=== PATIENT | female | born 2000 | race Caucasian/White ===

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

== ENCOUNTER 2022-01-11 16:37 | Emergency (ER) | payer MEDICAID, OTHER ==
[2022-01-11] MEDS ORDERED: SODIUM CHLORIDE 0.9% 1,000 ML IV STA (18:58)
[2022-01-11] MEDS ORDERED: ACETAMINOPHEN TAB 500 MG TAB PO STA (18:58)
[2022-01-11] MEDS ORDERED: ONDANSETRON 4 MG/2 ML VIAL IVP STA (19:05)
--- NOTE | 2022-01-11 19:21 | ED ---
General Adult HPI - General Chief complaint: Fever Stated complaint: Fever,N/V Time Seen by Provider: 01/11/22 18:10 Source: patient, RN notes reviewed Mode of arrival: ambulatory - History of Present Illness Initial comments: 21-year-old female presents to the emergency department for evaluation of fever and fatigue, onset 10 days prior to arrival. Patient states she has been to urgent care and swabbed negative for flu and Covid, but was treated for a mild UTI. States she has been taking the antibiotic for the past five days with no improvement. Reports onset of left flank pain x2 days. Complains of nausea, vomiting, and poor appetite as well. Did not take anything to treat fever prior to arrival. Denies headache, sore throat, cough, congestion, shortness of breath, difficulty breathing, abdominal pain, constipation, diarrhea, dysuria, and hematuria. - Related Data Previous Rx's Medication Instructions Recorded Ondansetron Odt [Zofran Odt] 4 mg PO Q8HR PRN #10 tab 01/11/22 Allergies Allergy/AdvReac Type Severity Reaction Status Date / Time No Known Allergies Allergy Verified 01/11/22 19:18 Review of Systems ROS Statement: Those systems with pertinent positive or pertinent negative responses have been documented in the HPI. ROS Other: All systems not noted in ROS Statement are negative. Past Medical History Past Medical History: No Reported History History of Any Multi-Drug Resistant Organisms: None Reported Past Surgical History: No Surgical Hx Reported Past Psychological History: No Psychological Hx Reported Smoking Status: Never smoker Past Alcohol Use History: None Reported Past Drug Use History: None Reported General Exam Limitations: no limitations (Well-developed, well-nourished female in no acute distress. Initial temperature 102.9, pulse 140, respirations 20, blood pressure 104/64, pulse ox 99% on room air.) General appearance: alert, in no apparent distress Eye exam: Present: normal appearance, PERRL, EOMI. Absent: scleral icterus, conjunctival injection, periorbital swelling ENT exam: Present: normal exam, normal oropharynx, mucous membranes moist, TM's normal bilaterally Neck exam: Present: normal inspection, full ROM, lymphadenopathy (palpable anterior cervical lymph nodes bilaterally). Absent: tenderness, meningismus Respiratory exam: Present: normal lung sounds bilaterally. Absent: respiratory distress, wheezes, rales, rhonchi, stridor, chest wall tenderness Cardiovascular Exam: Present: normal rhythm, tachycardia, normal heart sounds. Absent: systolic murmur, diastolic murmur, rubs, gallop, clicks GI/Abdominal exam: Present: soft, normal bowel sounds. Absent: distended, tenderness, guarding, rebound, rigid Back exam: Present: normal inspection, full ROM, tenderness (mild left lateral back/flank discomfort upon palpation) Neurological exam: Present: alert, oriented X3, normal gait Psychiatric exam: Present: normal affect, normal mood Skin exam: Present: warm, dry, intact, other (cheeks appear flushed) Course Vital Signs 01/11/22 01/11/22 17:35 23:12 Temperature 102.9 F H 98.4 F Pulse Rate 140 H 91 Respiratory 20 16 Rate Blood Pressure 104/64 107/70 O2 Sat by Pulse 99 97 Oximetry - Reevaluation(s) Reevaluation #1: 01/11/22 20:48 Results reviewed with patient and mother. Discussed option of CT abdomen and pelvis, patient and mother are agreeable with this plan of care. Patient is resting comfortably at this time. 01/11/22 22:50 Patient is feeling significantly improved. Encouraged her to continue antibiotic treatment as prescribed for UTI. I explained findings of elevated liver enzymes compatible with mononucleosis. Work note was provided. Instructed to minimize vigorous activity and avoid any contact sports or activi ties with high impact. Patient and mother verbalized understanding and agreed with this plan. Medical Decision Making - Medical Decision Making This is a pleasant 21-year-old female with a 10 day history of fever and fatigue. Upon exam, patient is appearing and in no acute distress. She is febrile and tachycardic with complaints of mild left-sided flank pain. Patient is currently being treated with Keflex for a UTI. Laboratory studies were reviewed showing elevated liver enzymes and a positive heterophile antibody test. Patient's urine appears contaminated, however culture was sent and patient is encouraged to continue on her antibiotic as prescribed. She was given IV fluids, Zofran, and Tylenol with significant improvement. CT of the abdomen and pelvis was obtained and was unremarkable. Results were reviewed with patient and mother. Explained the importance of avoiding vigorous physical activity and contact sports. Advised to avoid sharing eating utensils, food, and drinks. Discussed expectation for length of illness. Encouraged follow-up with PCP for recheck. Return parameters discussed in detail. Patient and m other verbalized understanding and agreed with this plan. Attending: Raj. - Lab Data Result diagrams: 01/11/22 19:39 01/11/22 19:39 Lab Results 01/11/22 01/11/22 01/11/22 Range/Units 19:39 19:39 19:39 WBC 5.9 (4.0-11.0) k/uL RBC 5.97 H (3.80-5.40) m/uL Hgb 16.6 H (11.4-16.0) gm/dL Hct 47.4 H (34.0-46.0) % MCV 79.5 L (80.0-100.0) fL MCH 27.8 (25.0-35.0) pg MCHC 35.0 (31.0-37.0) g/dL RDW 13.9 (11.5-15.5) % Plt Count 155 (150-450) k/uL MPV 8.5 Neutrophils % Not Reportable Neutrophils % (Manual) 37 % Band Neuts % (Manual) 5 % Lymphocytes % Not Reportable Lymphocytes % (Manual) 48 % Monocytes % Not Reportable Monocytes % (Manual) 10 % Eosinophils % Not Reportable Basophils % Not Reportable Neutrophils # Not Reportable Neutrophils # (Manual) 2.40 (1.3-7.7) k/uL Lymphocytes # Not Reportable Lymphocytes # (Manual) 2.83 (1.0-4.8) k/uL Monocytes # Not Reportable Monocytes # (Manual) 0.59 (0-1.0) k/uL Eosinophils # Not Reportable Basophils # Not Reportable Nucleated RBCs 0 (0-0) /100 WBC Manual Slide Review Performed Reactive Lymphocytes Present RBC Morphology Normal Sodium 134 L (137-145) mmol/L Potassium 4.2 (3.5-5.1) mmol/L Chloride 98 (98-107) mmol/L Carbon Dioxide 24 (22-30) mmol/L Anion Gap 12 mmol/L BUN 10 (7-17) mg/dL Creatinine 0.84 (0.52-1.04) mg/dL Est GFR (CKD-EPI)AfAm >90 (>60 ml/min/1.73 sqM) Est GFR (CKD-EPI)NonAf >90 (>60 ml/min/1.73 sqM) Glucose 94 (74-99) mg/dL Calcium 9.1 (8.4-10.2) mg/dL Total Bilirubin 2.8 H (0.2-1.3) mg/dL AST 595 H (14-36) U/L ALT 614 H (4-34) U/L Alkaline Phosphatase 423 H (38-126) U/L Total Protein 9.2 H (6.3-8.2) g/dL Albumin 4.5 (3.5-5.0) g/dL Urine Color Urine Appearance (Clear) Urine pH (5.0-8.0) Ur Specific [place] (1.001-1.035) Urine Protein (Negative) Urine Glucose (UA) (Negative) Urine Ketones (Negative) Urine Blood (Negative) Urine Nitrite (Negative) Urine Bilirubin (Negative) Urine Urobilinogen (<2.0) mg/dL Ur Leukocyte Esterase (Negative) Urine RBC (0-5) /hpf Urine WBC (0-5) /hpf Ur Squamous Epith Cells (0-4) /hpf Urine Bacteria (None) /hpf Urine Mucus (None) /hpf Urine HCG, Qual (Not Detectd) Coronavirus (PCR) (Not Detectd) Heterophile Antibody Positive (Negative) Influenza Type A RNA (Not Detectd) Influenza Type B (PCR) (Not Detectd) 01/11/22 01/11/22 01/11/22 Range/Units 19:39 19:39 19:48 WBC (4.0-11.0) k/uL RBC (3.80-5.40) m/uL Hgb (11.4-16.0) gm/dL Hct (34.0-46.0) % MCV (80.0-100.0) fL MCH (25.0-35.0) pg MCHC (31.0-37.0) g/dL RDW (11.5-15.5) % Plt Count (150-450) k/uL MPV Neutrophils % Neutrophils % (Manual) % Band Neuts % (Manual) % Lymphocytes % Lymphocytes % (Manual) % Monocytes % Monocytes % (Manual) % Eosinophils % Basophils % Neutrophils # Neutrophils # (Manual) (1.3-7.7) k/uL Lymphocytes # Lymphocytes # (Manual) (1.0-4.8) k/uL Monocytes # Monocytes # (Manual) (0-1.0) k/uL Eosinophils # Basophils # Nucleated RBCs (0-0) /100 WBC Manual Slide Review Reactive Lymphocytes RBC Morphology Sodium (137-145) mmol/L Potassium (3.5-5.1) mmol/L Chloride (98-107) mmol/L Carbon Dioxide (22-30) mmol/L Anion Gap mmol/L BUN (7-17) mg/dL Creatinine (0.52-1.04) mg/dL Est GFR (CKD-EPI)AfAm (>60 ml/min/1.73 sqM) Est GFR (CKD-EPI)NonAf (>60 ml/min/1.73 sqM) Glucose (74-99) mg/dL Calcium (8.4-10.2) mg/dL Total Bilirubin (0.2-1.3) mg/dL AST (14-36) U/L ALT (4-34) U/L Alkaline Phosphatase (38-126) U/L Total Protein (6.3-8.2) g/dL Albumin (3.5-5.0) g/dL Urine Color [place] Urine Appearance Cloudy H (Clear) Urine pH 6.0 (5.0-8.0) Ur Specific [place] 1.027 (1.001-1.035) Urine Protein 1+ H (Negative) Urine Glucose (UA) Negative (Negative) Urine Ketones 2+ H (Negative) Urine Blood Negative (Negative) Urine Nitrite Negative (Negative) Urine Bilirubin 2+ H (Negative) Urine Urobilinogen 6.0 (<2.0) mg/dL Ur Leukocyte Esterase Large H (Negative) Urine RBC 7 H (0-5) /hpf Urine WBC 94 H (0-5) /hpf Ur Squamous Epith Cells 44 H (0-4) /hpf Urine Bacteria Rare H (None) /hpf Urine Mucus Many H (None) /hpf Urine HCG, Qual (Not Detectd) Coronavirus (PCR) Not Detected (Not Detectd) Heterophile Antibody (Negative) Influenza Type A RNA Not Detected (Not Detectd) Influenza Type B (PCR) Not Detected (Not Detectd) 01/11/22 Range/Units 19:48 WBC (4.0-11.0) k/uL RBC (3.80-5.40) m/uL Hgb (11.4-16.0) gm/dL Hct (34.0-46.0) % MCV (80.0-100.0) fL MCH (25.0-35.0) pg MCHC (31.0-37.0) g/dL RDW (11.5-15.5) % Plt Count (150-450) k/uL MPV Neutrophils % Neutrophils % (Manual) % Band Neuts % (Manual) % Lymphocytes % Lymphocytes % (Manual) % Monocytes % Monocytes % (Manual) % Eosinophils % Basophils % Neutrophils # Neutrophils # (Manual) (1.3-7.7) k/uL Lymphocytes # Lymphocytes # (Manual) (1.0-4.8) k/uL Monocytes # Monocytes # (Manual) (0-1.0) k/uL Eosinophils # Basophils # Nucleated RBCs (0-0) /100 WBC Manual Slide Review Reactive Lymphocytes RBC Morphology Sodium (137-145) mmol/L Potassium (3.5-5.1) mmol/L Chloride (98-107) mmol/L Carbon Dioxide (22-30) mmol/L Anion Gap mmol/L BUN (7-17) mg/dL Creatinine (0.52-1.04) mg/dL Est GFR (CKD-EPI)AfAm (>60 ml/min/1.73 sqM) Est GFR (CKD-EPI)NonAf (>60 ml/min/1.73 sqM) Glucose (74-99) mg/dL Calcium (8.4-10.2) mg/dL Total Bilirubin (0.2-1.3) mg/dL AST (14-36) U/L ALT (4-34) U/L Alkaline Phosphatase (38-126) U/L Total Protein (6.3-8.2) g/dL Albumin (3.5-5.0) g/dL Urine Color Urine Appearance (Clear) Urine pH (5.0-8.0) Ur Specific [place] (1.001-1.035) Urine Protein (Negative) Urine Glucose (UA) (Negative) Urine Ketones (Negative) Urine Blood (Negative) Urine Nitrite (Negative) Urine Bilirubin (Negative) Urine Urobilinogen (<2.0) mg/dL Ur Leukocyte Esterase (Negative) Urine RBC (0-5) /hpf Urine WBC (0-5) /hpf Ur Squamous Epith Cells (0-4) /hpf Urine Bacteria (None) /hpf Urine Mucus (None) /hpf Urine HCG, Qual Not Detected (Not Detectd) Coronavirus (PCR) (Not Detectd) Heterophile Antibody (Negative) Influenza Type A RNA (Not Detectd) Influenza Type B (PCR) (Not Detectd) - Radiology Data Radiology results: report reviewed, image reviewed CT of the abdomen and pelvis with contrast was obtained. Report was reviewed in its entirety. Impression per Dr. Damon is moderate low-density free fluid in the pelvis. Disposition Clinical Impression: Fever, Mononucleosis, Elevated liver enzymes, UTI (urinary tract infection), Nausea Disposition: HOME SELF-CARE Condition: Stable Instructions (If sedation given, give patient instructions): Mononucleosis (ED), Fever in Adults (ED) Additional Instructions: Treat fever with Motrin. Continue on your Keflex. Take Zofran if needed for nausea. Increase fluids as tolerated. Avoid strenuous or vigorous activity. If you sustain any trauma or injury to your abdomen, you must be seen. You are provided with a work note. Call your PCP to schedule a follow-up appointment. Return to the emergency department with any new, worsening, or concerning symptoms. Prescriptions: Ondansetron Odt [Zofran Odt] 4 mg PO Q8HR PRN #10 tab PRN Reason: Nausea Is patient prescribed a controlled substance at d/c from ED?: No Referrals: Emir Brunner MD [Primary Care Provider] - 1-2 days Time of Disposition: 23:18
[2022-01-11 19:51] LABS: HCT 47.4 % (34.0-46.0); HGB 16.6 gm/dL (11.4-16.0); MCH 27.8 pg (25.0-35.0); MCV 79.5 fL (80.0-100.0); Mean Platelet Volume 8.5; Platelet Count 155 k/uL (150-450); RBC 5.97 m/uL (3.80-5.40); RDW 13.9 % (11.5-15.5); WBC 5.9 k/uL (4.0-11.0)
[2022-01-11 20:18] LABS: ALT 614 U/L (4-34); AST 595 U/L (14-36); African American GFR (CKD) >90 (>60 ml/min/1.73 sqM); Albumin 4.5 g/dL (3.5-5.0); Alkaline Phosphatase 423 U/L (38-126); Anion Gap 12 mmol/L; Blood Urea Nitrogen 10 mg/dL (7-17); Calcium 9.1 mg/dL (8.4-10.2); Carbon Dioxide 24 mmol/L (22-30); Chloride 98 mmol/L (98-107); Glucose 94 mg/dL (74-99); Non-African American GFR(CKD) >90 (>60 ml/min/1.73 sqM); Potassium 4.2 mmol/L (3.5-5.1); Sodium 134 mmol/L (137-145); Total Bilirubin 2.8 mg/dL (0.2-1.3); Total Protein 9.2 g/dL (6.3-8.2)
[2022-01-11 20:19] LABS: Appearance,Urine Cloudy (Clear); Bacteria,Urine Rare /hpf; Bilirubin,Urine 2+ (Negative); Blood,Urine Negative (Negative); Color,Urine Orange; Glucose,Urine (UA) Negative (Negative); Leukocyte Esterase,Urine Large (Negative); Mucus,Urine Many /hpf; Nitrite,Urine Negative (Negative); Protein,Urine 1+ (Negative); RBC,Urine 7 /hpf (0-5); Specific Gravity,Urine 1.027 (1.001-1.035); Squamous Epithelial Cell,Urine 44 /hpf (0-4); WBC,Urine 94 /hpf (0-5)
[2022-01-11 20:20] LABS: Ketones,Urine 2+ (Negative)
[2022-01-11 20:45] LABS: Band Neutrophils % 5 %; Lymphocytes # (M) 2.83 k/uL (1.0-4.8); Monocytes # (M) 0.59 k/uL (0-1.0); Neutrophils % (M) 37 %; Nucleated Red Blood Cells 0 /100 WBC (0-0); Reactive Lymphocytes Present; Total Cells Counted 100
[2022-01-11 20:47] LABS: RBC Morphology Normal
--- NOTE | 2022-01-11 21:49 | CT ---
EXAMINATION TYPE: CT abdomen pelvis w con DATE OF EXAM: 01/11/2022 COMPARISON: None HISTORY: LT sided abdominal pain CT DLP: 728.3 mGycm Automated exposure control for dose reduction was used. CONTRAST: Performed with IV Contrast, patient injected with 100 mL of Isovue 300. Images obtained from the diaphragm to the floor of the pelvis with IV contrast. Lung bases are clear. No pleural effusion. Heart size is normal. No pericardial effusion. Liver splee n and stomach pancreas and gallbladder appear normal. The bile ducts are not dilated. There is no adrenal mass. Kidneys show satisfactory contrast opacification. There is no hydronephrosi s. There is no retroperitoneal adenopathy. The ureters are not dilated. Delayed images show normal re nal excretion. The bladder distends smoothly. Uterus is anteverted. There is moderate low-density javon e fluid in the pelvis. There is no inguinal hernia. No evidence of a solid pelvic mass. The lumbar vertebra have normal spacing and alignment. Posterior elements are intact. No compression fracture. The bony pelvis is intact. The hip joints are intact. Appendix is posterior and appears nor mal. There is no mesenteric edema. No ascites or free air. No evidence of a bowel obstruction. IMPRESSION: Moderate low-density free fluid in the pelvis.
[2022-01-11 23:13] VITALS: BP 107/70; PULSE 91; RESP 16; TEMP 98.4
[2022-01-11] MEDS ORDERED: ONDANSETRON 4 MG ODT STARTER PACK 2 TAB BTL PO STA (23:18)
== END 2022-01-12 00:09 | disposition home or self-care (01) ==
LOC: EC 16:37
DX: N39.0 Urinary tract infection, site not specified (principal)
CPT/HCPCS: 99284 ×2; 96361; 36415; 80053; 85025; 86308; 81001; 81025; 87086; 87502; 87635; 74177; Q9967; 96360; 96374

== ENCOUNTER → 2022-04-05 | Outpatient (CLI) | payer OTHER ==
[2022-04-06 01:38] LABS: Basophils # (A) 0.02 X 10*3/uL (0.00-0.10); Basophils % (A) 0.3 %; Eosinophils # (A) 0.03 X 10*3/uL (0.04-0.35); Eosinophils % (A) 0.4 %; HCT 42.7 % (37.2-46.3); HGB 13.9 g/dL (12.0-15.0); Immature Grans, Automated 0.1 %; Lymphocytes # (A) 2.55 X 10*3/uL (0.90-5.00); Lymphocytes % (A) 37.2 %; MCH 25.6 pg (27.0-32.0); MCHC 32.6 g/dL (32.0-37.0); MCV 78.5 fL (80.0-97.0); Mean Platelet Volume 9.8 fL (9.5-12.2); Monocytes % (A) 8.8 %; NRBC Per 100 WBC 0 /100 WBCS (0.0-0.0); Neutrophils # (A) 3.64 X 10*3/uL (1.80-7.70); Neutrophils % (A) 53.2 %; Platelet Count 322 X 10*3/uL (140-440); RBC 5.44 X 10*6/uL (4.10-5.20); RDW 13.5 % (11.5-14.5); WBC 6.85 X 10*3/uL (4.50-10.00)
== END | disposition home or self-care (01) ==
LOC: LABPAT 14:51
PROVIDERS: ATTEND Obstetrics & Gynecology
DX: Z01.812 Encounter for preprocedural laboratory examination (principal)
CPT/HCPCS: 85025

== ENCOUNTER 2022-04-07 05:57 | Day surgery (SDC) | payer OTHER ==
--- NOTE | 2022-04-06 07:14 | P.HPOB ---
History of Present Illness H&P Date: 04/06/22 Chief Complaint: Missed This patient is a pleasant 21-year-old 1 para 0 female estimated gestational age by last menstrual period 9 weeks 6 days, estimated gestational age 8 weeks and 5 days I ultrasound who presented to my office for routine care. She had and also some done is fair over that apparently showed a heartbeat but was smaller than expected. I was unable to get heart tones in the office and ultrasound showed an 8 week demise. Patient was counseled as to expected management versus suction D&C for treatment. Patient is requested D&C for treatment. Review of Systems Genitourinary: Reports Menstruation: Reports amenorrhea Past Medical History Past Medical History: No Reported History History of Any Multi-Drug Resistant Organisms: None Reported Past Surgical History: No Surgical Hx Reported Past Anesthesia/Blood Transfusion Reactions: No Reported Reaction Past Psychological History: No Psychological Hx Reported Smoking Status: Never smoker Past Alcohol Use History: None Reported Past Drug Use History: None Reported Medications and Allergies Home Medications Medication Instructions Recorded Confirmed Type Ondansetron Odt [Zofran Odt] 4 mg PO Q8HR PRN #10 tab 01/11/22 Rx Allergies Allergy/AdvReac Type Severity Reaction Status Date / Time No Known Allergies Allergy Verified 01/11/22 19:18 Exam - OBG Physical Exam Abdomen: bowel sounds normal, no diffuse tenderness, no bruit present, no guarding noted, no hepatomegaly, no splenomegaly, no mass Vulva: both: normal Vagina: normal moisture, no discharge Cervix: no lesion, no discharge Uterus: enlarged (He weeks size) Results Blood type is Rh+. Ultrasound shows an 8 Week intrauterine without cardiac activity Assessment and Plan Assessment: This is a pleasant 21-year-old 1 para 0 female 8 and half weeks gestat ion with missed . Patient is requesting suction D&C for treatment. I discussed the surgery in detail with the patient and her mother. She understands risks of infection, bleeding, possible uterine perforation. All the patient's questions are answered and a written consent is obtained. (1) Missed Status: Acute Code(s): O02.1 - MISSED SNOMED Code(s): 44858791
[~2022-04-07 05:57] MED LIST: Pre Op ABX Message 1 EACH MISC MISCELLANE ONE
[2022-04-07] MEDS ORDERED: DEXAMETHASONE SOD PHOSPHATE 4 MG/ML 1 ML VIAL IV ONE (06:06)
[2022-04-07] MEDS ORDERED: LIDOCAINE 1% (10MG/ML) FOR IV START INTRADERMA PRN (06:06)
[2022-04-07] MEDS ORDERED: LACTATED RINGERS 1,000 ML IV SCH (06:06)
[2022-04-07] MEDS ORDERED: ONDANSETRON 4 MG/2 ML VIAL IVP ONE (06:06)
[2022-04-07] MEDS ORDERED: HYDROmorphone 0.5 MG/0.5 ML SYRINGE IVP PRN (06:06)
[2022-04-07] MEDS ORDERED: SCOPOLAMINE 1 MG/72 HR PATCH TRANSDERM ONE (06:06)
[2022-04-07] MEDS ORDERED: MIDAZOLAM 2 MG/2 ML VIAL IVP ONE (06:44)
[2022-04-07] MEDS ORDERED: LIDOCAINE 2% INJ 20 MG/ML (2 ML VIAL) ONE (06:55)
[2022-04-07] MEDS ORDERED: PROPOFOL 10 MG/ML 20 ML VIAL IV ONE (06:55)
[2022-04-07] MEDS ORDERED: MIDAZOLAM 2 MG/2 ML VIAL ONE (06:55)
[2022-04-07] MEDS ORDERED: KETOROLAC 15 MG/ML 1 ML VIAL ONE (06:55)
[2022-04-07] MEDS ORDERED: fentaNYL (PF) 50 MCG/ML 2 ML AMP ONE (06:55)
[2022-04-07] MEDS ORDERED: LACTATED RINGERS 1,000 ML IV ONE (07:24)
--- NOTE | 2022-04-07 07:33 | P.OP ---
Date of Procedure: 04/07/22 Preoperative Diagnosis: 8 and half week missed Postoperative Diagnosis: Same Procedure(s) Performed: Suction D&C Anesthesia: other (LMA) Surgeon: Dwight Peace Estimated Blood Loss (ml): 150 Urine output (ml): 20 Pathology: other (Uterine contents) Condition: stable Disposition: PACU Indications for Procedure: Please see dictated H&P for intimate details of this patient's admission. Brief summary this is a pleasant 21-year-old 1 para 0 female estimated gestational age by ultrasound 8-1/2 weeks with missed . Patient requested suction D&C for treatment. She and I have discussed this procedure and risks and risks of infection, bleeding, possible uterine perforation. All the patient's questions are answered and a written consent is obtained. Operative Findings: Patient had a generous amount of products of conception. Description of Procedure: This patient is taken to the operating room and laid in the supine position. She is subsequently taken to the operating room where she undergoes general anesthesia without incident. With an adequate level of anesthesia she's placed in the dorsal lithotomy position. She has a vaginal perineal prep and drape. Examination under anesthesia shows a mid position uterus slightly enlarged. I first drain the bladder for 20 mL of clear urine. Weighted speculum was placed in the posterior vagina. The anterior lip of the cervix is grabbed with an Allis clamp. I gently dilate the cervix to allow a 8 curved suction curette easily and the uterine cavity. Multiple passes are made and a large amount of tissue is removed. No further tissue noted, a gentle but thorough 4 quadrant curettage is done and again no further tissue was noted. The bleeding subsides at this point. Make one more pass with the suction curet and no other tissue is noted. This point the procedure is ended. The Allis clamp and weighted speculum were removed. The patient is awakened from anesthesia and taken to recovery room in satisfactory condition. All counts are correct 3. There are no complications.
[2022-04-07 07:54] VITALS: TEMP 96.9
[2022-04-07 08:30] VITALS: RESP 18
[2022-04-07 08:51] VITALS: BP 105/83; PULSE 78
== END 2022-04-07 09:05 | disposition home or self-care (01) ==
LOC: OR 05:57
PROVIDERS: ATTEND Obstetrics & Gynecology
DX: O02.1 Missed abortion (principal)
CPT/HCPCS: 86900; 86901; 88305; 86850; 59820; J2250; J1100; J2405; J3010; J1885; J2704; J2001

== ENCOUNTER → 2022-09-20 | Outpatient (CLI) | payer OTHER ==
--- NOTE | 2022-09-20 15:24 | US ---
EXAMINATION TYPE: Transabdominal DATE OF EXAM: 09/20/2022 2:35 PM COMPARISON: NONE CLINICAL HISTORY: Z36.89 ENCOUNTER FOR OTHER SPECIFIED SCR. confirm dates EXAM PERFORMED: Transabdominal (TA) EXAM MEASUREMENTS: GESTATIONAL AGE / DATING Physician Established: Not yet established Dates by LMP: (7 weeks/1 days) EDC: 05/08/23 Dates by First Scan: No previous this is first scan Dates by Current Scan for: (7 weeks/6 days) EDC: 05/03/23 MATERNAL ANATOMY Uterus: 8.8 x 4.8 x 5.7cm Right Ovary: 3.0 x 2.0 x 2.1cm Left Ovary: 3.0 x 1.7 x 2.8cm Post CDS / Adnexa: wnl Presence of free fluid: no Presence of corpus luteal cyst: yes, complex area right ovary = 2.0 x 1.3 x 1.1cm and cystic area lef t ovary = 1.4 x 1.0 x 1.4cm Presence of subchorionic bleed: no GESTATION / SURVEY CRL: 1.5cm (7 weeks/6 days) Yolk Sac (normal less than 6mm): 0.3cm Heart Rate: 163 bpm Rhythm: Normal IUP: Viable IUP Date of LMP: 08/01/22 Beta HcG (if available): Not available at this time IMPRESSION: 1. Single intrauterine gestation estimated at 7 weeks 6 day gestation based on crown-rump length. Car diac activity was 163 bpm. 2. Complex right ovarian cyst.
== END | disposition home or self-care (01) ==
LOC: RADUSWWP 14:17
PROVIDERS: ATTEND Obstetrics & Gynecology
DX: O34.81 Maternal care for other abnormalities of pelvic organs, first trimester (principal); Z3A.01 Less than 8 weeks gestation of pregnancy
CPT/HCPCS: 76801

== ENCOUNTER 2023-04-23 12:00 | Outpatient (CLI) | payer OTHER ==
[2023-04-23 12:50] VITALS: BP 125/77; PULSE 99; RESP 16; TEMP 98.2
--- NOTE | 2023-04-23 13:09 | P.MSEPDOC ---
Presenting Problems - Arrival Data Date of Arrival on Unit: 04/23/23 Time of Arrival on Unit: 12:44 Mode of Transport: Ambulatory - Complaint OB-Reason for Admission/Chief Complaint: Rule Out SROM Medical History - Information : 2 Para: 0 Term: 0 : 0 Abortions: Spontaneous or Elective: 1 Number of Living Children: 0 - Gestational Age Gestational Age by NEIL (wks/days): 38 Weeks and 5 Days Review of Systems - Review of Systems Constitutional: No problems Breast: No problems ENT: No problems Cardiovascular: No problems Respiratory: No problems Gastrointestinal: No problems Genitourinary: No problems Musculoskeletal: No problems Neurological: No problems Skin: No problems Vital Signs - Temperature Temperature: 98.2 F Temperature Source: Temporal Artery Scan - Pulse Right Sitting Pulse Rate: 99 Pulse Assessment Method: Automatic Cuff - Respirations Respiratory Rate: 16 Oxygen Delivery Method: Room Air O2 Sat by Pulse Oximetry: 99 - Blood Pressure Right Arm Blood Pressure: 125/77 Blood Pressure Mean: 93 Blood Pressure Source: Automatic Cuff Medical Screen Scoring - Cervical Exam Dilation (cm): 2 Effacement (%): 50 Station: -2 Membranes: Intact - Uterine Contractions Frequency From (mins): 2 Frequency To (mins): 2 Duration From (seconds): 40 Duration To (seconds): 60 Intensity: Mild Resting: Soft to palpation - Assessment - Baby A Baseline FHR: 130 Heart Rate - NICHD Category: Category I (Normal) NST: Reactive Physician Notification - Physician Notified Physician Notified Date: 04/23/23 Physician Notified Time: 12:36 Physician: Dwight Peace New Order Received: Yes Maternal Triage Index - Prompt/Priority 3 Prompt Priority 3: Yes Criteria Met for Priority 3: negative amnisure, reactive nst, vag exam 2cm/50% Disposition - Disposition OB Disposition: Discharge to home, Written follow up instructions reviewed Discharge Date: 04/23/23 Discharge Time: 12:44 I agree with the RN Medical Screening Exam: Yes Case reviewed; plan agreed upon as documented in EMR&OBIX.: Yes Diagnosis: FALSE LABOR AT OR AFTER 37 COMPLETED WEEKS OF GESTATION
== END 2023-04-23 12:44 | disposition home or self-care (01) ==
LOC: FBPOP 12:00
PROVIDERS: ATTEND Obstetrics & Gynecology
DX: O47.1 False labor at or after 37 completed weeks of gestation (principal); Z3A.38 38 weeks gestation of pregnancy
CPT/HCPCS: 59025; 84112; G0463; 99213

== ENCOUNTER 2023-04-26 05:46 | Inpatient (IN) | payer OTHER ==
--- NOTE | 2023-04-25 07:15 | P.HPOB ---
History of Present Illness H&P Date: 04/25/23 Chief Complaint: Requested induction of labor This patient is a pleasant 22-year-old 2 para 0 female estimated date of confinement 05/02/2023 estimated gestational age 39 and one sevenths weeks who presents to labor and delivery for requested induction of labor due to being uncomfortable. Patient's care has been uncomplicated. Review of Systems Genitourinary: Reports Menstruation: Reports amenorrhea Past Medical History Past Medical History: No Reported History History of Any Multi-Drug Resistant Organisms: None Reported Additional Past Surgical History / Comment(s): Suction D&C Past Anesthesia/Blood Transfusion Reactions: No Reported Reaction Past Psychological History: No Psychological Hx Reported Smoking Status: Never smoker Past Alcohol Use History: None Reported Past Drug Use History: None Reported Medications and Allergies Home Medications Medication Instructions Recorded Confirmed Type Vit No.179/Iron/Folic 1 tab PO DAILY 04/06/22 04/23/23 History [ Tablet] Allergies Allergy/AdvReac Type Severity Reaction Status Date / Time No Known Allergies Allergy Verified 04/23/23 12:23 Exam - OBG Physical Exam Abdomen: bowel sounds normal, no diffuse tenderness, no bruit present, no guarding noted, no hepatomegaly, no splenomegaly, no mass Vulva: both: normal Vagina: normal moisture, no discharge Cervix: no lesion (Cervix in the office was 2 cm dilated 50% effaced), no discharge Uterus: enlarged (Fundal height 39 cm) Results labs show she is oh positive, rubella immune, RPR is nonreactive, hepatitis B and C were nonreactive, HIV is negative, cell free DNA was 46 XY, group B strep was negative, ultrasounds most recently show the baby vertex 6 pounds ounces. Assessment and Plan Assessment: This is a pleasant 22-year-old 2 para 0 female 39 weeks gestation who presents to labor and delivery for requested induction of labor. Plan is induction of labor and anticipate vaginal delivery. (1) 39 weeks gestation of Status: Acute Code(s): Z3A.39 - 39 WEEKS GESTATION OF SNOMED Code(s): 85525667 (2) Elective induction of labor planned Status: Acute Code(s): UZW8248 - SNOMED Code(s): 265011757
[2023-04-26] MEDS ORDERED: TERBUTALINE 1 MG/ML VIAL SQ PRN (06:07)
[2023-04-26] MEDS ORDERED: LIDOCAINE 0.5% (PF) 5 MG/ML (50 ML SDV) SQ PRN (06:07)
[2023-04-26] MEDS ORDERED: OXYTOCIN 30 UNITS/500 ML NS 30 UNIT in SALINE 1 500ML.BAG IV SCH ×2 (06:07→21:48)
[2023-04-26] MEDS ORDERED: OXYTOCIN 10 UNIT/ML 1 ML VIAL IM PRN (06:07)
[2023-04-26] MEDS ORDERED: miSOPROStoL 200 MCG TAB PO PRN (06:07)
[2023-04-26] MEDS ORDERED: CARBOPROST TROMETHAMINE 250 MCG/ML 1 ML AMP IM PRN (06:07)
[2023-04-26] MEDS ORDERED: METHYLERGONOVINE 0.2 MG/ML 1 ML AMP IM PRN (06:07)
[2023-04-26] MEDS ORDERED: TRANEXAMIC 1,000 MG/100ML-NACL 1,000 MG in EMPTY BAG 1 BAG IV PRN (06:07)
[2023-04-26] MEDS: LACTATED RINGERS 1,000 ML IV SCH ×3 (06:38→14:17)
[2023-04-26 06:52] LABS: Basophils # (A) 0.1 k/uL (0-0.2); Basophils % (A) 0 %; Eosinophils # (A) 0.1 k/uL (0-0.7); Eosinophils % (A) 1 %; HCT 37.3 % (34.0-46.0); HGB 12.6 gm/dL (11.4-16.0); Lymphocytes # (A) 3.2 k/uL (1.0-4.8); Lymphocytes % (A) 24 %; MCH 26.6 pg (25.0-35.0); MCHC 33.7 g/dL (31.0-37.0); Monocytes # (A) 0.7 k/uL (0-1.0); Monocytes % (A) 5 %; Neutrophils # (A) 9.5 k/uL (1.3-7.7); Neutrophils % (A) 69 %; Platelet Count 241 k/uL (150-450); RBC 4.72 m/uL (3.80-5.40); RDW 15.1 % (11.5-15.5); WBC 13.8 k/uL (4.0-11.0)
[2023-04-26] MEDS ORDERED: SODIUM CHLORIDE 0.9% 100 ML BAG ONE (13:29)
[2023-04-26] MEDS ORDERED: fentaNYL (PF) 50 MCG/ML 5 ML AMP ONE (13:29)
[2023-04-26] MEDS ORDERED: ROPIVACAINE 5 MG/ML 20 ML AMPULE ONE (13:29)
[2023-04-26] MEDS ORDERED: diphenhydrAMINE 25 MG CAP PO PRN (21:48)
[2023-04-26] MEDS ORDERED: LANOLIN CREAM 5 GM TUBE TOPICAL PRN (21:48)
[2023-04-26] MEDS ORDERED: SIMETHICONE 80 MG CHEWABLE PO PRN (21:48)
[2023-04-26] MEDS ORDERED: bisacodyL 10 MG SUPP RECTAL PRN (21:48)
[2023-04-26] MEDS ORDERED: diphenhydrAMINE 50 MG/ML 1 ML VIAL IVP PRN (21:48)
[2023-04-26] MEDS ORDERED: ZOLPIDEM 5 MG TAB PO PRN (21:48)
[2023-04-26] MEDS ORDERED: HYDROCORTISONE 2.5% RECTAL CREAM 30 GM TUBE RECTAL PRN (21:48)
[2023-04-26] MEDS ORDERED: BENZOCAINE/MENTHOL SPRAY 1 GM/SPRAY AEROSOL TOPICAL PRN (21:48)
--- NOTE | 2023-04-26 21:49 | P.PROBDLV ---
Vaginal Delivery Note - . Vaginal Delivery Note: Normal vaginal delivery viable male Apgars 9 and 9 delivery time is 2113 hrs. Please see dictated H&P for intimate details of this patient's admission. In brief summary this is a pleasant 22-year-old 2 para 0 female 39 and one sevenths weeks gestation admitted to labor and delivery for requested induction of labor. Admission patient is to [facility] dilated artificial rupture membranes for clear fluid. Labor is induced with Pitocin per protocol. She does get an epidural for pain control and progresses throughout the day. Patient does get to complete however has no urge to push and for this reason the epidural showed off in approximately an hour or so later she begins to have the urge to push. Patient pushes for approximately 1 hour pushes the head to the perineum. Posterior perineum is supported we have controlled delivery of the 's head over the intact perineum. Infant's head is straight occiput anterior presentation. Mouth and nares are bulb suctioned. Is no evidence of a nuchal cord. I can feel a hand presenting with the anterior shoulder and this is gently reduced and with maternal effort she easily delivered the anterior and posterior shoulder and rest this 's body. This is a vigorous viable male infant Apgars 9 and 9 delivery time is 2113 hrs. After delivery of the the umbilical cord is doubly clamped and cut it does appear to be trivascular. The placenta is then spontaneously delivered intact. Inspection of the perineum shows that there is bilateral vaginal sulcus tears and bilateral labial tears. There is no significant perineal laceration. Using a 3-0 Vicryl I do a running lock of the vaginal sulcus tears and hemostasis is assured. I then do a running suture of 3-0 Vicryl bilateral labial lacerations and again good hemostasis is noted and excellent reapproximation. Final inspection shows no significant posterior perineal tears. Good hemostasis is noted. Estimated blood loss is probably 400 mL. All counts are correct 3. There are no complications. and mother are stable delivery room.
[2023-04-26] MEDS: SENNOSIDES-DOCUSATE SODIUM 1 EACH TAB PO SCH (22:42)
[2023-04-26] MEDS: IBUPROFEN 600 MG TAB PO PRN (23:31)
[2023-04-27] MEDS: IBUPROFEN 600 MG TAB PO PRN ×3 (05:24→22:54)
--- NOTE | 2023-04-27 06:11 | P.PNOBGVD ---
Subjective - Subjective Patient reports: Reports appetite normal, Reports voiding normally, Reports pain well controlled, Reports ambulating normally : doing well Objective - Latest Vital Signs Latest vital signs: Vital Signs Temp Pulse Resp BP 04/27/23 04:00 97.8 F 82 16 96/51 04/26/23 23:35 97 16 102/57 04/26/23 23:05 101 H 16 104/59 04/26/23 22:35 98.1 F 58 L 16 124/63 04/26/23 22:20 123 H 16 112/57 04/26/23 22:05 118 H 16 110/57 04/26/23 21:50 98.9 F 123 H 18 104/56 04/26/23 21:35 99.2 F 117 H 16 108/59 Intake and Output 04/26/23 04/26/23 04/27/23 14:59 22:59 06:59 Intake Total 196.3 Output Total 400 90 Balance -203.7 -90 Intake: Intake, IV Titration 196.3 Amount Oxytocin 30 Units/500 ml 196.3 Ns 30 unit In Saline 1 500ml.bag @ Per Protocol IV .Q0M [facility] Rx#:[id number] Output: Estimated Blood Loss 400 Output, Quantitative 90 Blood Loss Other: # Voids 2 1 - Exam Lungs: bilateral: normal Chest: Normal S1, Normal S2 Extremities: Present: normal Abdomen: Present: normal appearance, soft Uterus: Present: normal, firm - Labs Labs: Abnormal Lab Results - Last 24 Hours (Table) 04/26/23 Range/Units 06:30 WBC 13.8 H (4.0-11.0) k/uL MCV 79.0 L (80.0-100.0) fL Neutrophils # 9.5 H (1.3-7.7) k/uL Assessment and Plan Assessment: day #1. Patient's resting. Vital signs are stable she's afebrile. Uterus is firm nontender and she is having normal lochia. My impression is this is a normal course. Plan is to continue routine care and discharge home tomorrow. (1) 39 weeks gestation of Current Visit: No Status: Acute Code(s): Z3A.39 - 39 WEEKS GESTATION OF SNOMED Code(s): 10756343 (2) Elective induction of labor planned Current Visit: No Status: Acute Code(s): IBI5161 - SNOMED Code(s): 619199523
[2023-04-27] MEDS: ACETAMINOPHEN TAB 325 MG TAB PO PRN ×2 (07:28→16:34)
[2023-04-27 08:04] LABS: Basophils # (A) 0.1 k/uL (0-0.2); Basophils % (A) 0 %; Eosinophils # (A) 0.1 k/uL (0-0.7); Eosinophils % (A) 1 %; HCT 34.2 % (34.0-46.0); HGB 11.3 gm/dL (11.4-16.0); Lymphocytes % (A) 16 %; MCH 26.5 pg (25.0-35.0); MCV 80.3 fL (80.0-100.0); Mean Platelet Volume 8.4; Monocytes # (A) 0.9 k/uL (0-1.0); Monocytes % (A) 5 %; Neutrophils # (A) 14.1 k/uL (1.3-7.7); Neutrophils % (A) 76 %; Platelet Count 263 k/uL (150-450); RBC 4.26 m/uL (3.80-5.40); RDW 15.6 % (11.5-15.5); WBC 18.5 k/uL (4.0-11.0)
[2023-04-27] MEDS: SENNOSIDES-DOCUSATE SODIUM 1 EACH TAB PO SCH ×2 (08:19→22:54)
[2023-04-28] MEDS: ACETAMINOPHEN TAB 325 MG TAB PO PRN (04:16)
[2023-04-28] MEDS: IBUPROFEN 600 MG TAB PO PRN ×2 (05:39→12:53)
[2023-04-28 08:38] VITALS: BP 117/77; PULSE 90; RESP 14; TEMP 98
[2023-04-28] MEDS: SENNOSIDES-DOCUSATE SODIUM 1 EACH TAB PO SCH (09:05)
--- NOTE | 2023-04-28 09:09 | P.DS ---
Providers Date of admission: 04/26/23 05:46 Expected date of discharge: 04/28/23 Attending physician: Dwight Peace Primary care physician: Emir Brunner - Discharge Diagnosis(es) (1) Normal vaginal delivery Current Visit: Yes Status: Acute Hospital Course: Patient presented for induction of labor. She underwent a normal vaginal delivery. course was uneventful. She'll be discharged home day #2 in stable condition to follow-up with Dr. Peace in 6 weeks. Plan - Discharge Summary New Discharge Prescriptions: New Ibuprofen [Motrin] 600 mg PO Q6HR PRN #40 tab PRN Reason: Mild Pain (Scale 1 To 3) No Action Vit No.179/Iron/Folic [ Tablet] 1 tab PO DAILY Discharge Medication List Vit No.179/Iron/Folic [ Tablet] 1 tab PO DAILY 04/06/22 [History] Ibuprofen [Motrin] 600 mg PO Q6HR PRN #40 tab 04/27/23 [Rx] Follow up Appointment(s)/Referral(s): Dwight Peace MD [STAFF PHYSICIAN] - 6 Weeks Patient Instructions/Handouts: Vaginal Delivery (DC) Activity/Diet/Wound Care/Special Instructions: No intercourse or anything per vagina for 6 weeks. Please call if any fever, chills, excessive vaginal bleeding, and/or abdominal pain Discharge Disposition: HOME SELF-CARE
== END 2023-04-28 14:22 | disposition home or self-care (01) | DRG 560 ==
LOC: 4FBP 05:46
PROVIDERS: ADMIT Obstetrics & Gynecology; ATTEND Obstetrics & Gynecology
PROC: 10E0XZZ Delivery of Products of Conception, External Approach (ICD-10-PCS; principal; 2023-04-26)
PROC: 3E033VJ Introduction of Other Hormone into Peripheral Vein, Percutaneous Approach (ICD-10-PCS; 2023-04-26)
PROC: 0HQ9XZZ Repair Perineum Skin, External Approach (ICD-10-PCS; 2023-04-26)
PROC: 10907ZC Drainage of Amniotic Fluid, Therapeutic from Products of Conception, Via Natural or Artificial Opening (ICD-10-PCS; 2023-04-26)
DX: O70.0 First degree perineal laceration during delivery (principal); Z37.0 Single live birth; Z3A.39 39 weeks gestation of pregnancy
CPT/HCPCS: 85025; 86850; 86900; 86901

== ENCOUNTER 2023-08-31 09:17 | Emergency (ER) | payer OTHER ==
[2023-08-31 09:43] VITALS: BP 115/77; PULSE 80; RESP 18; TEMP 98
--- NOTE | 2023-08-31 10:18 | XR ---
EXAMINATION TYPE: XR ankle complete RT DATE OF EXAM: 08/31/2023 10:12 AM CLINICAL INDICATION:Female, 23 years old with history of pain; [facility] COMPARISON: None TECHNIQUE: XR ankle complete RT; ankle is imaged in frontal, lateral and oblique projections. FINDINGS: There is no evidence of acute osseous pathology. The joint spaces are well-preserved without evidenc e of subluxation or dislocation. Kager's fat pad is intact. Mild soft tissue swelling around the ankl e. No radiopaque foreign bodies are identified. IMPRESSION: 1. No evidence of acute fracture. 2. Subcutaneous swelling around the ankle likely secondary to underlying soft tissue injury.
--- NOTE | 2023-08-31 10:30 | ED ---
Lower Extremity Injury HPI - General Chief Complaint: Extremity Injury, Lower Stated Complaint: Right foot injury Time Seen by Provider: 08/31/23 09:24 Source: patient, RN notes reviewed Mode of arrival: ambulatory Limitations: no limitations - History of Present Illness Initial Comments: 23-year-old female sent emergency Department chief complaint of ankle injury. Patient states that she slipped on some steps on her ankle. She states is painful on the lateral portion no head injury no loss conscious or associated symptoms. - Related Data Home Medications Medication Instructions Recorded Confirmed Vit No.179/Iron/Folic 1 tab PO DAILY 04/06/22 04/26/23 [ Tablet] Previous Rx's Medication Instructions Recorded Ibuprofen [Motrin] 600 mg PO Q6HR PRN #40 tab 04/27/23 Ibuprofen [Motrin] 600 mg PO Q8HR PRN #20 tab 08/31/23 Allergies Allergy/AdvReac Type Severity Reaction Status Date / Time No Known Allergies Allergy Verified 08/31/23 09:30 Review of Systems ROS Statement: Those systems with pertinent positive or pertinent negative responses have been documented in the HPI. ROS Other: All systems not noted in ROS Statement are negative. Past Medical History Past Medical History: No Reported History History of Any Multi-Drug Resistant Organisms: None Reported Past Surgical History: No Surgical Hx Reported Additional Past Surgical History / Comment(s): Suction D&C Past Anesthesia/Blood Transfusion Reactions: No Reported Reaction Past Psychological History: No Psychological Hx Reported Smoking Status: Never smoker Past Alcohol Use History: None Reported Past Drug Use History: None Reported General Exam Limitations: no limitations General appearance: alert, in no apparent distress Head exam: Present: atraumatic, normocephalic, normal inspection Respiratory exam: Present: normal lung sounds bilaterally. Absent: respiratory distress, wheezes, rales, rhonchi, stridor Cardiovascular Exam: Present: regular rate, normal rhythm, normal heart sounds. Absent: systolic murmur, diastolic murmur, rubs, gallop, clicks Extremities exam: Present: other (Right ankle there is lateral malleoli tenderness and swelling.) Course Vital Signs 08/31/23 09:27 Temperature 98 F Pulse Rate 80 Respiratory 18 Rate Blood Pressure 115/77 O2 Sat by Pulse 100 Oximetry Medical Decision Making - Medical Decision Making Was pt. sent in by a medical professional or institution (, PA, JAVA SQL DEVELOPER, urgent care, hospital, or [place] health care facility...) When possible be specific @ -No Did you speak to anyone other than the patient for history (EMS, parent, family, police, friend...)? What history was obtained from this source @ -No Did you review nursing and triage notes (agree or disagree)? Why? @ -I reviewed and agree with nursing and triage notes Were old charts reviewed (outside hosp., previous admission, EMS record, old EKG, old radiological studies, urgent care reports/EKG's, [place] health care facility records)? Report findings @ -No old charts were reviewed Differential Diagnosis (chest pain, altered mental status, abdominal pain women, abdominal pain men, vaginal bleeding, weakness, fever, dyspnea, syncope, headache, dizziness, GI bleed, back pain, seizure, CVA, palpatations, mental health, musculoskeletal)? @ -Ankle sprain, ankle fracture EKG interpreted by me (3pts min.). @ -None X-rays interpreted by me (1pt min.). @ -X-ray right ankle no acute fracture or dislocation soft tissue swelling CT interpreted by me (1pt min.). @ -None done U/S interpreted by me (1pt. min.). @ -None done What testing was considered but not performed or refused? (CT, X-rays, U/S, labs)? Why? @ -None What meds were considered but not given or refused? Why? @ -None Did you discuss the management of the patient with other professionals (professionals i.e. , PA, JAVA SQL DEVELOPER, lab, RT, psych nurse, clinical social work aide, background check coordinator, teacher, chief innovation officer, case resolution specialist)? Give summary @ -No Was smoking cessation discussed for >3mins.? @ -No Was critical care preformed (if so, how long)? @ -No Were there social determinants of health that impacted care today? How? (Homelessness, low income, unemployed, alcoholism, drug addiction, transportation, low edu. Level, literacy, decrease access to med. care, long term, rehab)? @ -No Was there de-escalation of care discussed even if they declined (Discuss DNR or withdrawal of care, Hospice)? DNR status @ -No What co-morbidities impacted this encounter? (DM, HTN, Smoking, COPD, CAD, Cancer, CVA, ARF, Chemo, Hep., AIDS, mental health diagnosis, sleep apnea, morbid obesity)? @ -None Was patient admitted / discharged? Hospital course, mention meds given and route, prescriptions, significant lab abnormalities, going to OR and other pertinent info. @ -Discharge patient has a right ankle sprain patient is placed in a stirrup Aircast will be discharged in stable condition. Undiagnosed new problem with uncertain prognosis? @ -No Drug Therapy requiring intensive monitoring for toxicity (Heparin, Nitro, Insulin, Cardizem)? @ -No Were any procedures done? @ -No Diagnosis/symptom? @ -Right ankle sprain Acute, or Chronic, or Acute on Chronic? @ -Acute Uncomplicated (without systemic symptoms) or Complicated (systemic symptoms)? @ -Uncomplicated Side effects of treatment? @ -No Exacerbation, Progression, or Severe Exacerbation? @ -No Poses a threat to life or bodily function? How? (Chest pain, [place], [place], pneumonia, PE, COPD, DKA, ARF, appy, cholecystitis, CVA, Diverticulitis, Homicidal, Suicidal, threat to staff... and all critical care pts) @ -No Disposition Clinical Impression: Right ankle sprain Disposition: HOME SELF-CARE Condition: Stable Instructions (If sedation given, give patient instructions): Ankle Sprain (ED) Additional Instructions: Please return to the Emergency Department if symptoms worsen or any other concerns. Prescriptions: Ibuprofen [Motrin] 600 mg PO Q8HR PRN #20 tab PRN Reason: Pain Is patient prescribed a controlled substance at d/c from ED?: No Referrals: Emir Brunner MD [Primary Care Provider] - 1-2 days Roni Woodard MD [Medical Doctor] - 1-2 days Time of Disposition: 10:30
== END 2023-08-31 11:06 | disposition home or self-care (01) ==
LOC: EC 09:17
DX: S93.401A Sprain of unspecified ligament of right ankle, initial encounter (principal); W10.9XXA Fall (on) (from) unspecified stairs and steps, initial encounter
CPT/HCPCS: 99283

== ENCOUNTER 2024-11-17 15:45 | Observation (INO) | payer OTHER ==
[2024-11-17 16:32] LABS: Appearance,Urine Clear (Clear); Bilirubin,Urine Negative (Negative); Blood,Urine Negative (Negative); Color,Urine Colorless; Glucose,Urine (UA) Negative (Negative); Ketones,Urine Negative (Negative); Leukocyte Esterase,Urine Moderate (Negative); Nitrite,Urine Negative (Negative); Protein,Urine Negative (Negative); RBC,Urine 1 /hpf (0-5); Specific Gravity,Urine 1.004 (1.001-1.035); Squamous Epithelial Cell,Urine 8 /hpf (0-4); Urobilinogen,Urine <2.0 mg/dL (<2.0); WBC,Urine 9 /hpf (0-5)
[2024-11-17] MEDS: LACTATED RINGERS 500 ML IV ONE (16:56)
[2024-11-17] MEDS: TERBUTALINE 1 MG/ML VIAL SQ STA (17:08)
[2024-11-17] MEDS: BETAMET ACET-BETAMETH SOD PHOS 6 MG/ML MDV IM SCH (17:09)
[2024-11-17] MEDS: NIFEdipine 10 MG CAP PO SCH (19:49)
[2024-11-18] MEDS: LACTATED RINGERS 1,000 ML IV ONE (06:59)
--- NOTE | 2024-11-18 08:21 | P.HPOB ---
History of Present Illness H&P Date: 11/18/24 Chief Complaint: contractions 24 year old presents at 33 weeks 1 day with contractions. She is having contractions every few minutes. heart tones category 1. FFN was neg but cervix is 1-2/80/-3. She was admitted overnight for celestone and observation. Dr Aviles put her on procardia 10mg q 6 hours to help with the contractions. She is unchanged in 12 hours. I will keep her again to give second dose of celestone and recheck her cervix tomorrow. Review of Systems All systems: negative Constitutional: Denies chills, Denies fever Eyes: denies blurred vision, denies pain Ears, nose, mouth and throat: Denies headache, Denies sore throat Cardiovascular: Denies chest pain, Denies shortness of breath Respiratory: Denies cough Gastrointestinal: Denies abdominal pain, Denies diarrhea, Denies nausea, Denies vomiting Genitourinary: Denies dysuria, Denies hematuria Musculoskeletal: Denies myalgias Integumentary: Denies pruritus, Denies rash Neurological: Denies numbness, Denies weakness Psychiatric: Denies anxiety, Denies depression Endocrine: Denies fatigue, Denies weight change Past Medical History Past Medical History: No Reported History History of Any Multi-Drug Resistant Organisms: None Reported Past Surgical History: No Surgical Hx Reported Additional Past Surgical History / Comment(s): Suction D&C Past Anesthesia/Blood Transfusion Reactions: No Reported Reaction Past Psychological History: No Psychological Hx Reported Smoking Status: Never smoker Past Alcohol Use History: None Reported Past Drug Use History: None Reported - Past Family History Mother Family Medical History: No Reported History Medications and Allergies Home Medications Medication Instructions Recorded Confirmed Type Vit No.179/Iron/Folic 1 tab PO DAILY 04/06/22 11/17/24 History [ Tablet] Allergies Allergy/AdvReac Type Severity Reaction Status Date / Time No Known Allergies Allergy Verified 11/17/24 16:01 Exam Osteopathic Statement: *. No significant issues noted on an osteopathic structural exam other than those noted in the History and Physical/Consult. Vital Signs Temp Pulse Resp BP 11/17/24 19:39 98.4 F 90 16 129/72 11/17/24 18:59 98.4 F 90 16 129/72 Intake and Output 0311/18/24 11/18/24 22:59 06:59 14:59 Other: # Voids 1 2 Weight 88.451 kg Heart: Regular rate and rhythm Lungs: Clear to auscultation bilaterally Abdomen: Soft, nontender Extremities: Negative Homans sign Results Abnormal Lab Results - Last 24 Hours (Table) 11/17/24 Range/Units 15:30 Ur Leukocyte Esterase Moderate H (Negative) Urine WBC 9 H (0-5) /hpf Ur Squamous Epith Cells 8 H (0-4) /hpf Assessment and Plan (1) 33 weeks gestation of Current Visit: Yes Status: Acute Code(s): Z3A.33 - 33 WEEKS GESTATION OF SNOMED Code(s): 48533971 (2) contractions Current Visit: Yes Status: Acute Code(s): O47.00 - FALSE LABOR BEFORE 37 COMPLETED WEEKS OF GEST, UNSP TRI SNOMED Code(s): 952198758 Plan: 1. cont to monitor for contractions 2. procardia 10mg q 6hrs 3. second dose of celestone this evening
[2024-11-18 09:36] VITALS: RESP 18
[2024-11-18] MEDS: NIFEdipine 10 MG CAP PO SCH (09:47)
[2024-11-18 11:36] VITALS: BP 126/68; PULSE 113; TEMP 98.2
--- NOTE | 2024-11-19 08:34 | P.DS ---
Providers Date of admission: 11/17/24 19:07 Expected date of discharge: 11/19/24 Attending physician: Sophia Gaytan Primary care physician: Stated None - Discharge Diagnosis(es) (1) 33 weeks gestation of Current Visit: Yes Status: Acute (2) contractions Current Visit: Yes Status: Acute Hospital Course: Presented with contractions. fibronectin was negative but her cervix was 2 cm dilated. She was given Celestone x 224 hours apart. She is also started on Procardia 10 mg every 6 hours. Her contractions have spaced out though she still feels them at times. Cervix remains unchanged. heart tones remained category 1. Patient will be discharged home status post 2 doses of Celestone and on the Procardia. Follow-up with me in 2 days. Plan - Discharge Summary New Discharge Prescriptions: New NIFEdipine [Procardia] 10 mg PO Q6H 14 Days #100 cap No Action Vit No.179/Iron/Folic [ Tablet] 1 tab PO DAILY Discharge Medication List Vit No.179/Iron/Folic [ Tablet] 1 tab PO DAILY 04/06/22 [History] NIFEdipine [Procardia] 10 mg PO Q6H 14 Days #100 cap 11/19/24 [Rx] Follow up Appointment(s)/Referral(s): Sophia Gaytan DO [Doctor of Osteopathic Medicine] - 1-2 Days Discharge Disposition: HOME SELF-CARE
== END 2024-11-19 09:00 | disposition home or self-care (01) ==
LOC: FBPOP 15:45 → 4FBP 19:07
PROVIDERS: ADMIT Obstetrics & Gynecology; ATTEND Obstetrics & Gynecology
DX: O60.03 Preterm labor without delivery, third trimester (principal); Z3A.33 33 weeks gestation of pregnancy
CPT/HCPCS: 59025; 96365; 96372 ×3; 82731; 81001; G0378 ×3; G0463; J3105; J0702 ×2; 99214

== ENCOUNTER 2024-12-16 09:46 | Outpatient (CLI) | payer OTHER ==
[2024-12-16] MEDS: LACTATED RINGERS 1,000 ML IV ONE (10:14)
[2024-12-16] MEDS: ONDANSETRON 4 MG/2 ML VIAL IVP STA (10:24)
[2024-12-16 11:14] VITALS: BP 117/64; PULSE 131; RESP 17; TEMP 97.6
== END 2024-12-16 11:04 | disposition home or self-care (01) ==
LOC: FBPOP 09:46
PROVIDERS: ATTEND Obstetrics & Gynecology
DX: Z53.9 Procedure and treatment not carried out, unspecified reason (principal)
CPT/HCPCS: 59025; 96361; 96374; G0463; J2405; 99214

== ENCOUNTER 2024-12-30 05:47 | Inpatient (IN) | payer OTHER ==
[2024-12-30] MEDS ORDERED: TRANEXAMIC 1,000 MG/100ML-NACL 1,000 MG in EMPTY BAG 1 BAG IV PRN (06:06)
[2024-12-30] MEDS ORDERED: CARBOPROST TROMETHAMINE 250 MCG/ML 1 ML AMP IM PRN (06:06)
[2024-12-30] MEDS ORDERED: OXYTOCIN 10 UNIT/ML 1 ML VIAL IM PRN (06:06)
[2024-12-30] MEDS ORDERED: miSOPROStoL 200 MCG TAB PO PRN (06:06)
[2024-12-30] MEDS ORDERED: METHYLERGONOVINE 0.2 MG/ML 1 ML AMP IM PRN (06:06)
[2024-12-30] MEDS ORDERED: TERBUTALINE 1 MG/ML VIAL SQ PRN (06:06)
[2024-12-30] MEDS ORDERED: miSOPROStoL 200 MCG TAB RECTAL PRN (06:06)
[2024-12-30 06:26] LABS: Basophils # (A) 0.04 10*3/uL (0.00-0.10); Basophils % (A) 0.4 %; Eosinophils # (A) 0.05 10*3/uL (0.04-0.35); Eosinophils % (A) 0.5 %; HCT 38.6 % (37.2-46.3); HGB 12.9 g/dL (12.0-15.0); Lymphocytes # (A) 2.82 10*3/uL (0.90-5.00); Lymphocytes % (A) 26.8 %; MCH 26.5 pg (27.0-32.0); MCHC 33.4 g/dL (32.0-37.0); MCV 79.4 fL (80.0-97.0); Mean Platelet Volume 9.9 fL (9.5-12.2); Monocytes # (A) 0.73 10*3/uL (0.20-1.00); Monocytes % (A) 6.9 %; Neutrophils # (A) 6.83 10*3/uL (1.80-7.70); Neutrophils % (A) 64.7 %; Platelet Count 244 10*3/uL (140-440); RBC 4.86 10*6/uL (4.10-5.20); RDW 14.5 % (11.5-14.5); WBC 10.54 10*3/uL (4.50-10.00)
[2024-12-30] MEDS: LACTATED RINGERS 1,000 ML IV SCH (06:38)
[2024-12-30] MEDS: OXYTOCIN 30 UNITS/500 ML NS 30 UNIT in SALINE 1 500ML.BAG IV SCH (06:38)
--- NOTE | 2024-12-30 08:21 | P.HPOB ---
History of Present Illness H&P Date: 12/30/24 Chief Complaint: Induction of labor 24-year-old G2, P1 presents at 39 weeks and 1 day for induction of labor. Her cervix is 3 to 4 cm dilated, 80% effaced, -2 station. She is dajuan irregularly. heart tones 140 with moderate variability and reactive, category 1. Review of Systems All systems: negative Constitutional: Denies chills, Denies fever Eyes: denies blurred vision, denies pain Ears, nose, mouth and throat: Denies headache, Denies sore throat Cardiovascular: Denies chest pain, Denies shortness of breath Respiratory: Denies cough Gastrointestinal: Denies abdominal pain, Denies diarrhea, Denies nausea, Denies vomiting Genitourinary: Denies dysuria, Denies hematuria Musculoskeletal: Denies myalgias Integumentary: Denies pruritus, Denies rash Neurological: Denies numbness, Denies weakness Psychiatric: Denies anxiety, Denies depression Endocrine: Denies fatigue, Denies weight change Past Medical History Past Medical History: No Reported History History of Any Multi-Drug Resistant Organisms: None Reported Past Surgical History: No Surgical Hx Reported Additional Past Surgical History / Comment(s): Suction D&C Past Anesthesia/Blood Transfusion Reactions: No Reported Reaction Past Psychological History: No Psychological Hx Reported Smoking Status: Never smoker Past Alcohol Use History: None Reported Past Drug Use History: None Reported - Past Family History Mother Family Medical History: No Reported History Medications and Allergies Home Medications Medication Instructions Recorded Confirmed Type Vit No.179/Iron/Folic 1 tab PO DAILY 04/06/22 12/30/24 History [ Tablet] Allergies Allergy/AdvReac Type Severity Reaction Status Date / Time No Known Allergies Allergy Verified 12/16/24 09:49 Exam Osteopathic Statement: *. No significant issues noted on an osteopathic structural exam other than those noted in the History and Physical/Consult. Vital Signs Temp Pulse Resp BP Pulse Ox 12/30/24 06:04 97.1 F L 96 16 122/70 97 Intake and Output 12/29/24 12/30/24 12/30/24 22:59 06:59 14:59 Other: Weight 93.44 kg Heart: Regular rate and rhythm Lungs: Clear to auscultation bilaterally Abdomen: Soft, nontender Extremities: Negative Homans sign Results Result Diagrams: 12/30/24 06:18 Abnormal Lab Results - Last 24 Hours (Table) 12/30/24 Range/Units 06:18 WBC 10.54 H (4.50-10.00) 10*3/uL MCV 79.4 L (80.0-97.0) fL MCH 26.5 L (27.0-32.0) pg Immature Gran # 0.07 H (0.00-0.04) 10*3/uL Assessment and Plan (1) 39 weeks gestation of Current Visit: No Status: Acute Code(s): Z3A.39 - 39 WEEKS GESTATION OF SNOMED Code(s): 08440252 (2) Elective induction of labor planned Current Visit: No Status: Acute Code(s): [id number] - SNOMED Code(s): 167061176 Plan: 1. induction of labor with amniotomy and pitocin 2. anticipate normal vaginal delivery
[2024-12-30] MEDS: LIDOCAINE 0.5% (PF) 5 MG/ML (50 ML SDV) SQ PRN (11:20)
[2024-12-30] MEDS ORDERED: ZOLPIDEM 5 MG TAB PO PRN (11:40)
[2024-12-30] MEDS ORDERED: HYDROCORTISONE 2.5% RECTAL CREAM 30 GM TUBE RECTAL PRN (11:40)
[2024-12-30] MEDS ORDERED: diphenhydrAMINE 50 MG CAP PO PRN (11:40)
[2024-12-30] MEDS ORDERED: SIMETHICONE 80 MG CHEWABLE PO PRN (11:40)
[2024-12-30] MEDS ORDERED: diphenhydrAMINE 25 MG CAP PO PRN (11:40)
[2024-12-30] MEDS ORDERED: LANOLIN CREAM 1 GM TUBE TOPICAL PRN (11:40)
[2024-12-30] MEDS ORDERED: BENZOCAINE/MENTHOL SPRAY 1 GM/SPRAY AEROSOL TOPICAL PRN (11:40)
[2024-12-30] MEDS ORDERED: diphenhydrAMINE 50 MG/ML 1 ML VIAL IVP PRN ×2 (11:40)
[2024-12-30] MEDS: IBUPROFEN 800 MG TAB PO SCH (11:58)
[2024-12-30] MEDS: ACETAMINOPHEN TAB 500 MG TAB PO SCH (15:40)
[2024-12-30] MEDS: SENNOSIDES-DOCUSATE SODIUM 1 EACH TAB PO SCH (19:46)
[2024-12-31 05:24] LABS: Basophils # (A) 0.03 10*3/uL (0.00-0.10); Basophils % (A) 0.2 %; Eosinophils % (A) 0.8 %; HCT 34.9 % (37.2-46.3); HGB 11.5 g/dL (12.0-15.0); Lymphocytes % (A) 27.3 %; MCH 26.8 pg (27.0-32.0); MCV 81.4 fL (80.0-97.0); Monocytes # (A) 0.88 10*3/uL (0.20-1.00); Monocytes % (A) 6.9 %; Neutrophils # (A) 8.21 10*3/uL (1.80-7.70); Neutrophils % (A) 63.9 %; Platelet Count 239 10*3/uL (140-440); RBC 4.29 10*6/uL (4.10-5.20); RDW 14.9 % (11.5-14.5); WBC 12.83 10*3/uL (4.50-10.00)
--- NOTE | 2024-12-31 07:52 | P.PROBDLV ---
Vaginal Delivery Note - . Vaginal Delivery Note: Date of service 12/30/2024 24-year-old G2, P1 presents at 39 weeks and 1 day for induction of labor. Her cervix is 3 to 4 cm dilated, 80% effaced, -2 station. She is dajuan irregularly. heart tones 140 with moderate variability and reactive, category 1. Pitocin was started and amniotomy performed at 7:14 AM, clear fluid noted. She progressed quickly to complete at 1107. She pushed, delivered a viable female infant over intact perineum at 11:16 AM. Head delivered OA, anterior shoulder delivered gentle downward guidance followed by posterior shoulder and rest of body. Nose and mouth bulb suction, cord clamped and cut, placed in layers abdomen. Apgars 9, 9, weight 7 pounds 5 ounces. Placenta delivered spontaneously, intact with three-vessel cord 11:19 AM. Vagina, cervix, perineum inspected. Second-degree midline laceration was repa ired with 3-0 Vicryl. Estimated blood loss 100 mL. Mother and baby in stable condition.
--- NOTE | 2024-12-31 07:54 | P.DS ---
Providers Date of admission: 12/30/24 05:47 Expected date of discharge: 12/31/24 Attending physician: Sophia Gaytan Primary care physician: Emir Brunner - Discharge Diagnosis(es) (1) 39 weeks gestation of Current Visit: No Status: Resolved (2) Elective induction of labor planned Current Visit: No Status: Resolved (3) Normal vaginal delivery Current Visit: No Status: Acute Hospital Course: Patient presented for induction of labor. She underwent a normal vaginal delivery. course has been uneventful. She denies nausea, vomiting, chest pain, shortness of breath or calf pain. Patient will be discharged home day #1 in stable condition to follow-up with me in 6 weeks. Plan - Discharge Summary New Discharge Prescriptions: New Ibuprofen [Motrin] 800 mg PO Q8HR #30 tab No Action Vit No.179/Iron/Folic [ Tablet] 1 tab PO DAILY Discharge Medication List Vit No.179/Iron/Folic [ Tablet] 1 tab PO DAILY 04/06/22 [History] Ibuprofen [Motrin] 800 mg PO Q8HR #30 tab 12/31/24 [Rx] Follow up Appointment(s)/Referral(s): Sophia Gaytan DO [Doctor of Osteopathic Medicine] - 02/11/25 7:45 am Discharge Disposition: HOME SELF-CARE
[2024-12-31 11:55] VITALS: BP 108/74; PULSE 81; RESP 16; TEMP 98
== END 2024-12-31 12:15 | disposition home or self-care (01) | DRG 560 ==
LOC: 4FBP 05:47
PROVIDERS: ADMIT Obstetrics & Gynecology; ATTEND Obstetrics & Gynecology
PROC: 10E0XZZ Delivery of Products of Conception, External Approach (ICD-10-PCS; principal; 2024-12-30)
PROC: 0KQM0ZZ Repair Perineum Muscle, Open Approach (ICD-10-PCS; 2024-12-30)
PROC: 10907ZC Drainage of Amniotic Fluid, Therapeutic from Products of Conception, Via Natural or Artificial Opening (ICD-10-PCS; 2024-12-30)
PROC: 3E033VJ Introduction of Other Hormone into Peripheral Vein, Percutaneous Approach (ICD-10-PCS; 2024-12-30)
DX: O70.1 Second degree perineal laceration during delivery (principal); Z37.0 Single live birth; Z3A.39 39 weeks gestation of pregnancy
CPT/HCPCS: 85025; 86850; 86900; 86901